=== PATIENT | female | born 1945 | race Caucasian/White ===

== ENCOUNTER → 2023-08-25 14:27 | Outpatient (REF) | payer MEDICARE, OTHER, SELFPAY ==
[2023-08-25 15:01] LABS: % Basophils 0.7 % (0-2); % Eosinophils 4.1 % (0-6); % Immature Granulocytes 0.3 % (0-0.5); % Lymphocytes 20.8 % (20.5-51.1); % Monocytes 9.1 % (1.7-9.3); Absolute Basophils 0.1 10^3/uL (0-0.2); Absolute Eosinophils 0.3 10^3/uL (0-0.7); Absolute Lymphocytes 1.5 10^3/uL (1.2-3.4); Absolute Monocytes 0.7 10^3/uL (0.1-0.6); Absolute Neutrophils 4.6 10^3/uL (1.4-6.5); Hematocrit 40.7 % (37.0-47.0); Hemoglobin 13.6 g/dL (12.0-16.0); Mean Corp Hgb Conc. 33.4 g/dL (33.0-37.0); Mean Corpuscular Hgb 34.5 pg (27.0-31.0); Mean Corpuscular Volume 103.3 fL (81.0-99.0); Mean Platelet Volume 10.5 fL (7.4-10.4); Nucleated Red Blood Cells % 0 %; Platelet Count 141 10^3/uL (130-400); Red Blood Cell Count 3.94 10^6/uL (4.20-5.40); Red Cell Dist. Width 12.1 % (11.5-14.5); White Blood Cell Count 7.1 10^3/uL (4.8-10.8)
[2023-08-25 15:13] LABS: Iron 92 ug/dl (37-170)
[2023-08-25 15:22] LABS: Percent Saturation 32 % (20-50); Total Iron Binding Capacity 280 ug/dl (265-497)
== END ==
LOC: REG 14:27
PROVIDERS: ATTENDING PHYSICIAN Nurse Practitioner Family; FAMILY PHYSICIAN Family Medicine
DX: D50.0 Iron deficiency anemia secondary to blood loss (chronic) (principal); E03.9 Hypothyroidism, unspecified; D64.9 Anemia, unspecified
CPT/HCPCS: 36415; 82728; 83540; 83550; 85025

== ENCOUNTER → 2023-11-14 09:56 | Outpatient (REF) | payer MEDICARE, OTHER, SELFPAY ==
[2023-11-14 12:13] LABS: C-Reactive Protein < 5.00 mg/L (0.0-10.00)
[2023-11-14 12:23] LABS: ALT (SGPT) 14 U/L (0-35); AST (SGOT) 24 U/L (14-36); Albumin 4.4 g/dl (3.5-5.0); Alkaline Phosphatase 72 U/L (38-126); Blood Urea Nitrogen 32 mg/dl (7-17); Calcium 9.5 mg/dl (8.4-10.2); Carbon Dioxide 29 mmol/L (22-30); Chloride 100 mmol/L (98-107); Glucose 84 mg/dl (70-99); Potassium 4.2 mmol/L (3.5-5.1); Sodium 133 mmol/L (135-145); Total Bilirubin 0.4 mg/dl (0.2-1.3); Total Protein 6.9 g/dl (6.3-8.2); eGFR > 60.00
== END ==
LOC: REG 09:56
PROVIDERS: ATTENDING PHYSICIAN Internal Medicine Rheumatology; FAMILY PHYSICIAN Family Medicine
DX: D64.9 Anemia, unspecified (principal); E55.9 Vitamin D deficiency, unspecified; I73.00 Raynaud's syndrome without gangrene; M06.4 Inflammatory polyarthropathy; M19.041 Primary osteoarthritis, right hand; M34.9 Systemic sclerosis, unspecified; M79.641 Pain in right hand; M79.642 Pain in left hand; M81.0 Age-related osteoporosis without current pathological fracture; R61 Generalized hyperhidrosis; Z11.1 Encounter for screening for respiratory tuberculosis; Z79.899 Other long term (current) drug therapy
CPT/HCPCS: 36415; 80053; 86140

== ENCOUNTER → 2023-11-19 11:26 | Outpatient (REF) | payer MEDICARE, OTHER, SELFPAY ==
[2023-11-19 12:27] LABS: % Basophils 0.4 % (0-2); % Eosinophils 1.6 % (0-6); % Immature Granulocytes 0.2 % (0-0.5); % Neutrophils 65.8 % (42.2-75.2); Absolute Eosinophils 0.1 10^3/uL (0-0.7); Absolute Lymphocytes 1.1 10^3/uL (1.2-3.4); Absolute Monocytes 0.5 10^3/uL (0.1-0.6); Absolute Neutrophils 3.3 10^3/uL (1.4-6.5); Hematocrit 40.9 % (37.0-47.0); Hemoglobin 13.5 g/dL (12.0-16.0); Mean Platelet Volume 10.7 fL (7.4-10.4); Nucleated Red Blood Cells % 0 %; Platelet Count 113 10^3/uL (130-400); Red Blood Cell Count 3.97 10^6/uL (4.20-5.40); Red Cell Dist. Width 12.5 % (11.5-14.5)
[2023-11-19 13:26] LABS: Iron 98 ug/dl (37-170)
[2023-11-19 13:35] LABS: Percent Saturation 32 % (20-50); Total Iron Binding Capacity 301 ug/dl (265-497)
== END ==
LOC: REG 11:26
PROVIDERS: ATTENDING PHYSICIAN Nurse Practitioner Family; FAMILY PHYSICIAN Family Medicine
DX: D50.0 Iron deficiency anemia secondary to blood loss (chronic) (principal); E03.9 Hypothyroidism, unspecified
CPT/HCPCS: 36415; 82728; 83540; 83550; 85025

== ENCOUNTER 2023-12-18 08:32 | Outpatient (RCR) | payer MEDICARE, OTHER, SELFPAY | END 2023-12-18 23:59 | disposition home or self-care (01) | LOC: RPT 08:32 | PROVIDERS: ATTENDING PHYSICIAN Orthopaedic Surgery; FAMILY PHYSICIAN Family Medicine | DX: M54.50 Low back pain, unspecified (principal); Z73.6 Limitation of activities due to disability | CPT/HCPCS: 97110; 97162 ==

== ENCOUNTER → 2023-12-24 14:43 | Outpatient (REF) | payer MEDICARE, OTHER, SELFPAY | LOC: RCS 14:43 | PROVIDERS: ATTENDING PHYSICIAN Internal Medicine Cardiovascular Disease; FAMILY PHYSICIAN Family Medicine | DX: I27.20 Pulmonary hypertension, unspecified (principal); I77.810 Thoracic aortic ectasia | CPT/HCPCS: 93306 ==

== ENCOUNTER → 2023-12-29 14:59 | Outpatient (REF) | payer MEDICARE, OTHER, SELFPAY | LOC: PAVMRI 14:59 | PROVIDERS: ATTENDING PHYSICIAN Orthopaedic Surgery; FAMILY PHYSICIAN Family Medicine | DX: M54.50 Low back pain, unspecified (principal) | CPT/HCPCS: 72148 ==

== ENCOUNTER 2024-01-15 14:08 | Outpatient (RCR) | payer MEDICARE, OTHER, SELFPAY | END 2024-01-15 23:59 | disposition home or self-care (01) | LOC: RPT 14:08 | PROVIDERS: ATTENDING PHYSICIAN Orthopaedic Surgery; FAMILY PHYSICIAN Family Medicine | DX: M54.50 Low back pain, unspecified (principal); Z73.6 Limitation of activities due to disability | CPT/HCPCS: 97110; 97530 ==

== ENCOUNTER 2024-02-16 11:16 | Outpatient (RCR) | payer MEDICARE, OTHER, SELFPAY | END 2024-02-16 23:59 | disposition home or self-care (01) | LOC: RPT 11:16 | PROVIDERS: ATTENDING PHYSICIAN Orthopaedic Surgery; FAMILY PHYSICIAN Family Medicine | DX: M54.50 Low back pain, unspecified (principal); Z73.6 Limitation of activities due to disability | CPT/HCPCS: 97110 ==

== ENCOUNTER → 2024-02-20 10:01 | Outpatient (REF) | payer MEDICARE, OTHER, SELFPAY ==
[2024-02-20 11:29] LABS: % Basophils 0.6 % (0-2); % Immature Granulocytes 0.2 % (0-0.5); % Lymphocytes 24.8 % (20.5-51.1); % Monocytes 9.2 % (1.7-9.3); % Neutrophils 63.2 % (42.2-75.2); Absolute Eosinophils 0.1 10^3/uL (0-0.7); Absolute Lymphocytes 1.3 10^3/uL (1.2-3.4); Absolute Monocytes 0.5 10^3/uL (0.1-0.6); Absolute Neutrophils 3.2 10^3/uL (1.4-6.5); Hematocrit 39.9 % (37.0-47.0); Hemoglobin 13.5 g/dL (12.0-16.0); Mean Corp Hgb Conc. 33.8 g/dL (33.0-37.0); Mean Corpuscular Hgb 34.1 pg (27.0-31.0); Mean Corpuscular Volume 100.8 fL (81.0-99.0); Nucleated Red Blood Cells % 0 %; Platelet Count 133 10^3/uL (130-400); Red Blood Cell Count 3.96 10^6/uL (4.20-5.40); Red Cell Dist. Width 12.4 % (11.5-14.5); White Blood Cell Count 5.1 10^3/uL (4.8-10.8)
[2024-02-20 11:41] LABS: ALT (SGPT) 15 U/L (0-35); AST (SGOT) 27 U/L (14-36); Albumin 4.5 g/dl (3.5-5.0); Alkaline Phosphatase 68 U/L (38-126); Blood Urea Nitrogen 23 mg/dl (7-17); C-Reactive Protein < 5.00 mg/L (0.0-10.00); Calcium 9.5 mg/dl (8.4-10.2); Carbon Dioxide 25 mmol/L (22-30); Chloride 100 mmol/L (98-107); Glucose 92 mg/dl (70-99); HDL Cholesterol 70 mg/dl; Iron 112 ug/dl (37-170); LDL Cholesterol, Calculated 59 mg/dl; Potassium 4.1 mmol/L (3.5-5.1); Sodium 134 mmol/L (135-145); Total Bilirubin 0.5 mg/dl (0.2-1.3); Total Cholesterol 149 mg/dl (50-199); Triglyceride 101 mg/dl (10-149); Very Low Density Lipoprotein 20 mg/dl (0-30); eGFR > 60.00
[2024-02-20 11:50] LABS: NT-proBNP 496 pg/ml; Percent Saturation 38 % (20-50); Total Iron Binding Capacity 290 ug/dl (265-497)
== END ==
LOC: REG 10:01
PROVIDERS: ATTENDING PHYSICIAN Internal Medicine; FAMILY PHYSICIAN Family Medicine; OTHER PHYSICIAN Internal Medicine Cardiovascular Disease; OTHER PHYSICIAN Internal Medicine Rheumatology; OTHER PHYSICIAN Nurse Practitioner Family
DX: M34.9 Systemic sclerosis, unspecified (principal); M19.90 Unspecified osteoarthritis, unspecified site; Z79.899 Other long term (current) drug therapy; D50.0 Iron deficiency anemia secondary to blood loss (chronic); I27.20 Pulmonary hypertension, unspecified; E78.5 Hyperlipidemia, unspecified; D50.9 Iron deficiency anemia, unspecified
CPT/HCPCS: 36415; 80053; 80061; 82728; 82784; 83521; 83540; 83550; 83880; 84155; 84165; 85025; 86140; 86334

== ENCOUNTER 2024-04-13 01:05 | Emergency (ER) | payer MEDICARE, OTHER, SELFPAY ==
[2024-04-13 01:06] VITALS: BP 138/78; BMI 21.4
--- NOTE | 2024-04-13 01:40 | ED.GENMED ---
History of Present Illness
General
Chief Complaint: Ear Problem
Source: patient
Exam Limitations: none
Time Seen by Provider: 04/13/24 01:30
Nursing documentation reviewed up to this point in time: agreed with
History of Present Illness
History of Present Illness:
78-year-old female presents emergency room complaining of left ear pain and left jaw pain. This began 2 days ago, and worsened this evening. She denies fevers. She has a history of TMJ. Tylenol and ibuprofen tonight.
Past History
Past History
ED Past Medical History: GERD, HTN, Valvular disease ( s/p TAVR), Hypothyroidism and Other (Lupus, scleroderma, Pulmonary Hypertension Raynauds, Constipation, Diverticulitis, GI bleeding, Ostomy with reversal, )
ED Past Surgical History: Bowel resection, Cardiac (Aortic valve replaced), Gynecological (partial hysterectom with bladder repair), Orthopedic (Left knee replacement) and Other
Social History
Tobacco: Former smoker
Alcohol: Occasional
Personal:
Living: with family
Family History
Family History: Negative Diabetes, Hypertension, Early CAD, Asthma or Cancer
Review of Systems
Review of Systems
Allergies reviewed?: Yes
All Other Systems: Not applicable
Constitutional: Reports no symptoms; Denies fever
EENT: Reports mouth pain and other (Jaw pain)
Respiratory: Reports no symptoms
Cardiac: Reports no symptoms
ABD/GI: Reports no symptoms
: Reports no symptoms
Musculoskeletal: Reports no symptoms
Skin: Reports no symptoms
Neurological: Reports no symptoms
Endocrine: Reports no symptoms
Hematologic/Lymphatic: Reports no symptoms
Psychiatric: Reports no symptoms
Phy Exam
Physical Exam
Physical Exam:
Physical Exam
General: no apparent distress, not acutely ill
Neck: supple. no meningeal signs. normal posterior pharynx
Heart: s1/s2 regular rate and rhythm, no murmur. equal radial
pulses.
HEENT: Pupils equal round reactive to light, EOMI, tenderness to palpation at left lower jaw/TMJ
Lungs: no acute respiratory distress. clear bilaterally
Abdomen: normal bowel sounds. not tender. no CVAT
Neuro: alert and oriented. no focal neurological deficits cranial nerves II through XII intact
Skin: no rash
Psychiatric: well kept. interactive and cooperative
Extremities: no edema. no calf tenderness. negative homans. good distal pulses
Course
Orders/Labs/Results
Orders:
Orders
04/13/24 01:39
CT Neck With Iv Contrast Urgent
Comment:
Reason For Exam: left side neck/jaw pain
IV Insert/Care/Rem.- Treatment PRN
04/13/24 01:49
Complete Blood Count/With Diff Urgent
Comprehensive Metabolic Panel Urgent
04/13/24 03:49
Ketorolac [Toradol] 15 mg IV NOW STA
Abnormal Lab Results
04/13/24
01:49
RBC 3.56 L 10^6/uL
(4.20-5.40)
Hgb 11.8 L g/dL
(12.0-16.0)
Hct 34.5 L %
(37.0-47.0)
MCH 33.1 H pg
(27.0-31.0)
Plt Count 118 L 10^3/uL
(130-400)
Absolute Lymphs (auto) 0.9 L 10^3/uL
(1.2-3.4)
Absolute Monos (auto) 0.7 H 10^3/uL
(0.1-0.6)
Lymphocytes % 14.6 L %
(20.5-51.1)
Monocytes % 10.6 H %
(1.7-9.3)
BUN 18 H mg/dl
(7-17)
Glucose 101 H mg/dl
(70-99)
Total Protein 6.1 L g/dl
(6.3-8.2)
04/13/24 01:49
04/13/24 01:49
Vital Signs
Initial and Last Documented VS:
Initial Vital Signs
Temp Pulse Resp BP Pulse Ox
97.7 F 89 20 138/78 95
04/13/24 01:06 04/13/24 01:06 04/13/24 01:06 04/13/24 01:06 04/13/24 01:06
Last Documented Vital Signs
Temp Pulse Resp BP Pulse Ox
97.7 F 89 20 142/63 95
04/13/24 01:06 04/13/24 01:06 04/13/24 01:06 04/13/24 03:11 04/13/24 03:11
MDM/Problems Addressed
Differential Diagnosis Includes:
TMJ, deep space infection
MDM/Problems Addressed:
78-year-old female with left jaw pain, no chest pain. Do not suspect ACS, no signs of deep space infection. Likely temporomandibular joint disorder. Follow-up with dentist.
Chronic conditions affecting care: HTN
Acute Exacerbation and/or Progression of Chronic Illness: Other (TMJ disorder)
*Radiology
Radiology exam reviewed: radiology read reviewed (CT neck shows no signs of deep space infection, small amount of fluid at left TMJ.)
*Pulse Oximetry
Patient hypoxic: no
*Critical Care Note
Total Time (30-74mins, 75-104mins- exclusive of procedures): Not Applicable
Patient Management
Social determinants of health affecting care: Living situation
Escalation/DeEscalation of care consider admission/obs:
Admit not indicated
ED Attending Note
-
Portions of this chart may have been created with voice recognition software.� Occasional wrong word or��sound alike� substitutions may have occurred due to the inherent limitations of voice recognition software.
Discharge Plan
Departure
Patient Disposition: Home (Routine Discharge)
Date of Disposition: 04/13/24
Time of Disposition: 03:50
Patient with high blood pressure during this ER visit?: Yes
Condition: Good
Discharge Problem:
TMJ arthralgia
Instructions: Temporomandibular joint (TMJ) disorders, BLOOD PRESSURE
Prescriptions:
No Action
atorvastatin 10 MG tablet
10 mg PO HS
aspirin 81 MG tablet,delayed release (DR/EC)
81 mg PO HS
levothyroxine 100 MCG tablet
100 mcg PO HS
methotrexate sodium 2.5 MG tablet
15 mg PO FR
Patient Comments:
X6 on Friday
fluoxetine 20 MG capsule
20 mg PO DAILY
folic acid 1 MG tablet
1 mg PO DAILY
sildenafil (pulm.hypertension) 20 MG tablet
20 mg PO TID
acetaminophen 500 MG tablet
500 mg PO BID
cyanocobalamin (vitamin B-12) 500 mcg Tablet
500 mcg PO DAILY Qty: 0
cholecalciferol (vitamin D3) [Vitamin D3] 1,000 UNIT capsule
1,000 units PO DAILY
calcium citrate 250 mg calcium Tablet
250 mg PO DAILY Qty: 0
Prolia 60 mg/mL Syringe
60 mg SC [id number] Qty: 0
Patient Comments:
Prolia Shot every 6 months in office
clindamycin HCl 150 mg Capsule
450 mg PO DAILYPRN PRN (Reason: prior to dental procedure) Qty: 0
ethacrynic acid 25 mg Tablet
25 mg PO DAILY Qty: 0 0RF
Rx Instructions:
Take two tabs 50mg for the next 5 days then back to 25mg
cranberry 500 mg Capsule
500 mg PO HS
melatonin 1 mg Tablet
1 mg PO HS
Opsumit 10 mg Tablet
10 mg PO DAILY
Blanche/Turmeric
500 mg PO DAILY
[facility] Mindlink Probiotic 12 Billion
1 cap PO DAILY
polyethylene glycol 3350 17 gram Powder In Packet
17 g PO DAILY Qty: 0 0RF
pantoprazole [Protonix] 40 mg tablet,delayed release (DR/EC)
40 mg PO BID Qty: 30 0RF
Referrals:
Nicolas Loera MD [Family Provider] -
Activity Restrictions/Additional Instructions:
Follow up with your dentist. Return for any concerns.
Interventions
Interventions:
*Risk Screen - Suicide Last Done: 04/13/24 01:06
*General Assessment Last Done: 04/13/24 01:06
*Neglect/Abuse Screening Last Done: 04/13/24 01:06
ED- Fall Risk Assessment Last Done: 04/13/24 01:35
*ED COVID-19 Vaccine History Last Done: 04/13/24 01:16
Discharge Date and Time
Print Language: NIGERIEN
[2024-04-13 02:07] LABS: % Basophils 0.3 % (0-2); % Eosinophils 2.8 % (0-6); % Immature Granulocytes 0.2 % (0-0.5); % Lymphocytes 14.6 % (20.5-51.1); % Monocytes 10.6 % (1.7-9.3); % Neutrophils 71.5 % (42.2-75.2); Absolute Eosinophils 0.2 10^3/uL (0-0.7); Absolute Lymphocytes 0.9 10^3/uL (1.2-3.4); Absolute Monocytes 0.7 10^3/uL (0.1-0.6); Absolute Neutrophils 4.6 10^3/uL (1.4-6.5); Hematocrit 34.5 % (37.0-47.0); Hemoglobin 11.8 g/dL (12.0-16.0); Mean Corp Hgb Conc. 34.2 g/dL (33.0-37.0); Mean Corpuscular Hgb 33.1 pg (27.0-31.0); Mean Corpuscular Volume 96.9 fL (81.0-99.0); Mean Platelet Volume 10.3 fL (7.4-10.4); Nucleated Red Blood Cells % 0 %; Platelet Count 118 10^3/uL (130-400); Red Blood Cell Count 3.56 10^6/uL (4.20-5.40); Red Cell Dist. Width 12.8 % (11.5-14.5); White Blood Cell Count 6.4 10^3/uL (4.8-10.8)
[2024-04-13 02:23] LABS: ALT (SGPT) 13 U/L (0-35); AST (SGOT) 23 U/L (14-36); Albumin 3.8 g/dl (3.5-5.0); Alkaline Phosphatase 64 U/L (38-126); Blood Urea Nitrogen 18 mg/dl (7-17); Calcium 9.3 mg/dl (8.4-10.2); Carbon Dioxide 23 mmol/L (22-30); Chloride 103 mmol/L (98-107); Glucose 101 mg/dl (70-99); Potassium 3.9 mmol/L (3.5-5.1); Sodium 138 mmol/L (135-145); Total Bilirubin 0.5 mg/dl (0.2-1.3); Total Protein 6.1 g/dl (6.3-8.2); eGFR > 60.00
[2024-04-13 03:11] VITALS: BP 142/63
[2024-04-13 04:08] VITALS: BP 132/60
[2024-04-13] MEDS: TORADOL 15 MG IV (04:09)
== END 2024-04-13 04:19 | disposition home or self-care (01) ==
LOC: EMR 01:05
PROVIDERS: EMERGENCY PHYSICIAN Emergency Medicine; FAMILY PHYSICIAN Family Medicine
DX: M26.629 Arthralgia of temporomandibular joint, unspecified side (principal); Z87.891 Personal history of nicotine dependence; I10 Essential (primary) hypertension
CPT/HCPCS: 99284; 96374; 70491; 80053; 85025; Q9967

== ENCOUNTER → 2024-05-14 13:22 | Outpatient (REF) | payer MEDICARE, OTHER, SELFPAY | LOC: WDC 13:22 | PROVIDERS: ATTENDING PHYSICIAN Family Medicine | DX: Z12.31 Encounter for screening mammogram for malignant neoplasm of breast (principal) | CPT/HCPCS: 77063; 77067 ==

== ENCOUNTER → 2024-06-01 09:38 | Outpatient (REF) | payer MEDICARE, OTHER, SELFPAY ==
[2024-06-01 11:00] LABS: % Basophils 0.7 % (0-2); % Eosinophils 5.7 % (0-6); % Immature Granulocytes 0.4 % (0-0.5); % Lymphocytes 27.8 % (20.5-51.1); % Monocytes 9.6 % (1.7-9.3); % Neutrophils 55.8 % (42.2-75.2); Absolute Eosinophils 0.3 10^3/uL (0-0.7); Absolute Lymphocytes 1.6 10^3/uL (1.2-3.4); Absolute Monocytes 0.5 10^3/uL (0.1-0.6); Absolute Neutrophils 3.1 10^3/uL (1.4-6.5); Hematocrit 41.3 % (37.0-47.0); Hemoglobin 13.4 g/dL (12.0-16.0); Mean Corp Hgb Conc. 32.4 g/dL (33.0-37.0); Mean Corpuscular Hgb 32.6 pg (27.0-31.0); Mean Corpuscular Volume 100.5 fL (81.0-99.0); Mean Platelet Volume 10.8 fL (7.4-10.4); Nucleated Red Blood Cells % 0 %; Platelet Count 144 10^3/uL (130-400); Red Blood Cell Count 4.11 10^6/uL (4.20-5.40); Red Cell Dist. Width 13.5 % (11.5-14.5); White Blood Cell Count 5.6 10^3/uL (4.8-10.8)
[2024-06-01 11:25] LABS: C-Reactive Protein < 5.00 mg/L (0.0-10.00)
[2024-06-01 11:57] LABS: Hepatitis B Surface Antigen Negative (Negative)
[2024-06-01 12:15] LABS: Hepatitis C Antibody Negative (Negative)
[2024-06-01 12:35] LABS: ALT (SGPT) 15 U/L (0-35); AST (SGOT) 24 U/L (14-36); Albumin 4.7 g/dl (3.5-5.0); Alkaline Phosphatase 68 U/L (38-126); Blood Urea Nitrogen 24 mg/dl (7-17); Calcium 10.2 mg/dl (8.4-10.2); Carbon Dioxide 26 mmol/L (22-30); Chloride 101 mmol/L (98-107); Glucose 92 mg/dl (70-99); Iron 81 ug/dl (37-170); Potassium 4.7 mmol/L (3.5-5.1); Sodium 140 mmol/L (135-145); Total Bilirubin 0.4 mg/dl (0.2-1.3); Total Protein 7.3 g/dl (6.3-8.2); eGFR > 60.00
[2024-06-01 14:07] LABS: Percent Saturation 26 % (20-50); Total Iron Binding Capacity 303 ug/dl (265-497)
[2024-06-03 01:38] LABS: CCP Antibody IgG/IgA 19 Units (0-19)
[2024-06-03 10:32] LABS: Rheumatoid Agglutinin Less Than 10 IU (<10 IU)
== END ==
LOC: REG 09:38
PROVIDERS: ATTENDING PHYSICIAN Internal Medicine Rheumatology; FAMILY PHYSICIAN Family Medicine; OTHER PHYSICIAN Nurse Practitioner Family
DX: D64.9 Anemia, unspecified (principal); E55.9 Vitamin D deficiency, unspecified; I73.00 Raynaud's syndrome without gangrene; M06.4 Inflammatory polyarthropathy; M19.041 Primary osteoarthritis, right hand; M34.9 Systemic sclerosis, unspecified; M48.02 Spinal stenosis, cervical region; M48.061 Spinal stenosis, lumbar region without neurogenic claudication; M79.641 Pain in right hand; M79.642 Pain in left hand; M81.0 Age-related osteoporosis without current pathological fracture; R61 Generalized hyperhidrosis; Z11.1 Encounter for screening for respiratory tuberculosis; Z11.59 Encounter for screening for other viral diseases; Z73.89 Other problems related to life management difficulty; Z79.899 Other long term (current) drug therapy
CPT/HCPCS: 36415; 80053; 82728; 83540; 83550; 85025; 86140; 86200; 86430; 86803; 87340

== ENCOUNTER → 2024-06-03 10:17 | Outpatient (REF) | payer MEDICARE, OTHER, SELFPAY | LOC: HWRAD 10:17 | PROVIDERS: ATTENDING PHYSICIAN Orthopaedic Surgery; FAMILY PHYSICIAN Family Medicine; REFERRING PHYSICIAN Internal Medicine Rheumatology | DX: M25.062 Hemarthrosis, left knee (principal); Z96.652 Presence of left artificial knee joint | CPT/HCPCS: 73706; Q9967 ==

== ENCOUNTER → 2024-06-21 13:54 | Outpatient (REF) | payer MEDICARE, OTHER, SELFPAY | LOC: RADI 13:54 | PROVIDERS: ATTENDING PHYSICIAN Orthopaedic Surgery; FAMILY PHYSICIAN Family Medicine | DX: M25.062 Hemarthrosis, left knee (principal); M25.462 Effusion, left knee; M25.562 Pain in left knee ==

== ENCOUNTER 2024-07-06 06:59 | Outpatient (REF) | payer MEDICARE, OTHER, SELFPAY ==
[2024-07-06] VITALS (7 sets, daily range): BP systolic 68–152; BP diastolic 48–91
[2024-07-06 07:42] LABS: Hematocrit 36.1 % (37.0-47.0); Hemoglobin 12.1 g/dL (12.0-16.0); Mean Corp Hgb Conc. 33.5 g/dL (33.0-37.0); Mean Corpuscular Hgb 33.2 pg (27.0-31.0); Mean Corpuscular Volume 98.9 fL (81.0-99.0); Mean Platelet Volume 10.4 fL (7.4-10.4); Platelet Count 129 10^3/uL (130-400); Red Blood Cell Count 3.65 10^6/uL (4.20-5.40); Red Cell Dist. Width 13.4 % (11.5-14.5); White Blood Cell Count 5.9 10^3/uL (4.8-10.8)
[2024-07-06 07:52] LABS: PT 13.5 Sec (11.4-14.6)
[2024-07-06] MEDS: VANCOCIN 200 IV (08:41)
== END 2024-07-06 15:30 | disposition home or self-care (01) ==
LOC: RADI 06:59
PROVIDERS: ATTENDING PHYSICIAN Radiology Diagnostic Radiology; FAMILY PHYSICIAN Family Medicine; OTHER PHYSICIAN Physician Assistant; REFERRING PHYSICIAN Orthopaedic Surgery
DX: M25.062 Hemarthrosis, left knee (principal); Z96.652 Presence of left artificial knee joint
CPT/HCPCS: 20611; 36247; 36415; 37243; 76937; 85027; 85610; 99152; 99153; C1769; C1887

== ENCOUNTER → 2024-07-31 09:16 | Outpatient (REF) | payer MEDICARE, OTHER, SELFPAY ==
[2024-07-31 10:34] LABS: % Basophils 0.8 % (0-2); % Eosinophils 6.5 % (0-6); % Immature Granulocytes 0.2 % (0-0.5); % Lymphocytes 27.3 % (20.5-51.1); % Monocytes 10.7 % (1.7-9.3); % Neutrophils 54.5 % (42.2-75.2); Absolute Basophils 0.1 10^3/uL (0-0.2); Absolute Eosinophils 0.4 10^3/uL (0-0.7); Absolute Lymphocytes 1.6 10^3/uL (1.2-3.4); Absolute Monocytes 0.6 10^3/uL (0.1-0.6); Absolute Neutrophils 3.2 10^3/uL (1.4-6.5); Hematocrit 40.7 % (37.0-47.0); Hemoglobin 13.4 g/dL (12.0-16.0); Mean Corp Hgb Conc. 32.9 g/dL (33.0-37.0); Mean Corpuscular Hgb 33.1 pg (27.0-31.0); Mean Corpuscular Volume 100.5 fL (81.0-99.0); Mean Platelet Volume 10.8 fL (7.4-10.4); Nucleated Red Blood Cells % 0 %; Platelet Count 132 10^3/uL (130-400); Red Blood Cell Count 4.05 10^6/uL (4.20-5.40); Red Cell Dist. Width 13.2 % (11.5-14.5)
[2024-07-31 11:03] LABS: ALT (SGPT) 11 U/L (0-35); AST (SGOT) 21 U/L (14-36); Albumin 4.4 g/dl (3.5-5.0); Alkaline Phosphatase 80 U/L (38-126); Total Bilirubin 0.3 mg/dl (0.2-1.3)
== END ==
LOC: REG 09:16
PROVIDERS: ATTENDING PHYSICIAN Internal Medicine Rheumatology; FAMILY PHYSICIAN Family Medicine
DX: M06.4 Inflammatory polyarthropathy (principal); Z79.899 Other long term (current) drug therapy
CPT/HCPCS: 36415; 80076; 85025

== ENCOUNTER → 2024-10-04 14:38 | Outpatient (REF) | payer MEDICARE, OTHER, SELFPAY ==
[2024-10-04 15:49] LABS: % Eosinophils 4.6 % (0-6); % Immature Granulocytes 0.6 % (0-0.5); % Lymphocytes 17.1 % (20.5-51.1); % Monocytes 8.5 % (1.7-9.3); % Neutrophils 68.2 % (42.2-75.2); Absolute Basophils 0.1 10^3/uL (0-0.2); Absolute Eosinophils 0.2 10^3/uL (0-0.7); Absolute Lymphocytes 0.9 10^3/uL (1.2-3.4); Absolute Monocytes 0.4 10^3/uL (0.1-0.6); Absolute Neutrophils 3.6 10^3/uL (1.4-6.5); Hematocrit 36.2 % (37.0-47.0); Hemoglobin 11.8 g/dL (12.0-16.0); Mean Corp Hgb Conc. 32.6 g/dL (33.0-37.0); Mean Corpuscular Hgb 33.1 pg (27.0-31.0); Mean Corpuscular Volume 101.7 fL (81.0-99.0); Mean Platelet Volume 10.5 fL (7.4-10.4); Nucleated Red Blood Cells % 0 %; Platelet Count 141 10^3/uL (130-400); Red Blood Cell Count 3.56 10^6/uL (4.20-5.40); White Blood Cell Count 5.2 10^3/uL (4.8-10.8)
[2024-10-04 16:15] LABS: Iron 77 ug/dl (37-170)
[2024-10-04 16:24] LABS: Percent Saturation 24 % (20-50); Total Iron Binding Capacity 309 ug/dl (265-497)
== END ==
LOC: REG 14:38
PROVIDERS: ATTENDING PHYSICIAN Internal Medicine Hematology & Oncology; FAMILY PHYSICIAN Family Medicine
DX: D50.0 Iron deficiency anemia secondary to blood loss (chronic) (principal)
CPT/HCPCS: 36415; 82728; 83540; 83550; 85025

== ENCOUNTER → 2024-11-03 09:17 | Outpatient (REF) | payer MEDICARE, OTHER, SELFPAY ==
[2024-11-03 10:32] LABS: % Basophils 0.7 % (0-2); % Eosinophils 3.7 % (0-6); % Immature Granulocytes 0.2 % (0-0.5); % Lymphocytes 21.7 % (20.5-51.1); % Monocytes 8.7 % (1.7-9.3); Absolute Eosinophils 0.2 10^3/uL (0-0.7); Absolute Lymphocytes 1.3 10^3/uL (1.2-3.4); Absolute Monocytes 0.5 10^3/uL (0.1-0.6); Absolute Neutrophils 3.9 10^3/uL (1.4-6.5); Hematocrit 36.7 % (37.0-47.0); Mean Corp Hgb Conc. 32.7 g/dL (33.0-37.0); Mean Corpuscular Hgb 32.9 pg (27.0-31.0); Mean Corpuscular Volume 100.5 fL (81.0-99.0); Mean Platelet Volume 10.2 fL (7.4-10.4); Nucleated Red Blood Cells % 0 %; Platelet Count 135 10^3/uL (130-400); Red Blood Cell Count 3.65 10^6/uL (4.20-5.40); Red Cell Dist. Width 14.3 % (11.5-14.5)
== END ==
LOC: REG 09:17
PROVIDERS: ATTENDING PHYSICIAN Internal Medicine Hematology & Oncology; FAMILY PHYSICIAN Family Medicine
DX: D50.0 Iron deficiency anemia secondary to blood loss (chronic) (principal)
CPT/HCPCS: 36415; 85025

== ENCOUNTER → 2024-11-11 07:00 | Outpatient (REF) | payer MEDICARE, OTHER, SELFPAY ==
[2024-11-11] VITALS (10 sets, daily range): BP systolic 60–142; BP diastolic 49–94
[2024-11-11 07:50] LABS: INR 0.96; PT 13.3 Sec (11.4-14.6)
--- NOTE | 2024-11-11 15:15 | PTCARENOTE ---
1200 S/P left genicular artery embolization, via left femoral artery. Pressure held after procedure, where patient was moving while pressure was held. Pt. stated she was twitching uncontrollably. Pressure had to be manually held by RTs for one hour.
Hematoma 7.5cmX 5cm noted. Resolved within 1hour. Pt. remaining in IRAD to recover laying flat until 1630pm.
1500 voided yellow urine in bedan. Logrolled to place on and take off bedpan. Tolerating finger foods and gingerale.
== END ==
LOC: RADI 07:00
PROVIDERS: ATTENDING PHYSICIAN Radiology Diagnostic Radiology; FAMILY PHYSICIAN Family Medicine; OTHER PHYSICIAN Physician Assistant; REFERRING PHYSICIAN Orthopaedic Surgery
DX: M25.062 Hemarthrosis, left knee (principal); D68.8 Other specified coagulation defects
CPT/HCPCS: 36140; 36247; 36415; 37242; 75710; 76937; 85610; 99152; 99153; C1769

== ENCOUNTER → 2024-11-29 11:00 | Outpatient (REF) | payer MEDICARE, OTHER, SELFPAY ==
[2024-11-29 12:06] LABS: ALT (SGPT) 12 U/L (0-35); AST (SGOT) 22 U/L (14-36); Albumin 4.3 g/dl (3.5-5.0); Alkaline Phosphatase 77 U/L (38-126); Blood Urea Nitrogen 25 mg/dl (7-17); Calcium 10.1 mg/dl (8.4-10.2); Carbon Dioxide 29 mmol/L (22-30); Chloride 101 mmol/L (98-107); Glucose 93 mg/dl (70-99); HDL Cholesterol 71 mg/dl; Iron 97 ug/dl (37-170); LDL Cholesterol, Calculated 52 mg/dl; Potassium 4.2 mmol/L (3.5-5.1); Sodium 137 mmol/L (135-145); Total Bilirubin 0.5 mg/dl (0.2-1.3); Total Cholesterol 144 mg/dl (50-199); Total Protein 7.1 g/dl (6.3-8.2); Triglyceride 108 mg/dl (10-149); Very Low Density Lipoprotein 21 mg/dl (0-30); eGFR > 60.00
[2024-11-29 12:08] LABS: C-Reactive Protein < 5.00 mg/L (0.0-10.00)
[2024-11-29 12:11] LABS: NT-proBNP 584 pg/ml; Troponin I < 0.012 ng/ml
[2024-11-29 12:13] LABS: % Basophils 0.6 % (0-2); % Eosinophils 3.1 % (0-6); % Immature Granulocytes 0.4 % (0-0.5); % Lymphocytes 17.2 % (20.5-51.1); % Neutrophils 70.7 % (42.2-75.2); Absolute Eosinophils 0.2 10^3/uL (0-0.7); Absolute Lymphocytes 0.8 10^3/uL (1.2-3.4); Absolute Monocytes 0.4 10^3/uL (0.1-0.6); Absolute Neutrophils 3.5 10^3/uL (1.4-6.5); Hematocrit 41.6 % (37.0-47.0); Hemoglobin 13.5 g/dL (12.0-16.0); Mean Corp Hgb Conc. 32.5 g/dL (33.0-37.0); Mean Corpuscular Hgb 33.1 pg (27.0-31.0); Mean Platelet Volume 10.6 fL (7.4-10.4); Nucleated Red Blood Cells % 0 %; Platelet Count 141 10^3/uL (130-400); Red Blood Cell Count 4.08 10^6/uL (4.20-5.40); Red Cell Dist. Width 14.3 % (11.5-14.5); White Blood Cell Count 4.9 10^3/uL (4.8-10.8)
[2024-11-29 12:16] LABS: Percent Saturation 28 % (20-50); Total Iron Binding Capacity 337 ug/dl (265-497)
[2024-11-29 12:46] LABS: Ferritin 70.6 ng/ml (11.1-264.0)
[2024-11-29 12:50] LABS: Vitamin D, 25-OH*** 41.4 ng/mL (30-80)
== END ==
LOC: REG 11:00
PROVIDERS: ATTENDING PHYSICIAN Internal Medicine Rheumatology; FAMILY PHYSICIAN Family Medicine; OTHER PHYSICIAN Internal Medicine Hematology & Oncology; REFERRING PHYSICIAN Internal Medicine Cardiovascular Disease
DX: D64.9 Anemia, unspecified (principal); E55.9 Vitamin D deficiency, unspecified; I73.00 Raynaud's syndrome without gangrene; M06.4 Inflammatory polyarthropathy; M19.041 Primary osteoarthritis, right hand; M34.9 Systemic sclerosis, unspecified; M48.02 Spinal stenosis, cervical region; M48.061 Spinal stenosis, lumbar region without neurogenic claudication; M79.641 Pain in right hand; M79.642 Pain in left hand; M81.0 Age-related osteoporosis without current pathological fracture; R61 Generalized hyperhidrosis; Z11.1 Encounter for screening for respiratory tuberculosis; Z11.59 Encounter for screening for other viral diseases; Z79.899 Other long term (current) drug therapy; I27.20 Pulmonary hypertension, unspecified; E78.5 Hyperlipidemia, unspecified; D50.0 Iron deficiency anemia secondary to blood loss (chronic)
CPT/HCPCS: 36415; 80053; 80061; 82306; 82728; 83540; 83550; 83880; 84484; 85025; 86140

== ENCOUNTER → 2024-12-09 09:48 | Outpatient (REF) | payer MEDICARE, OTHER, SELFPAY ==
[2024-12-11 15:23] LABS: Quantiferon Mitogen minus NIL 9.95 IU/mL; Quantiferon NIL 0.05 IU/mL; Quantiferon Plus TB1 minus NIL 0.01 IU/mL (<=0.34); Quantiferon Plus TB2 minus NIL 0.01 IU/mL (<=0.34); Quantiferon TB Gold Plus Negative (Negative)
== END ==
LOC: REG 09:48
PROVIDERS: ATTENDING PHYSICIAN Internal Medicine Rheumatology; FAMILY PHYSICIAN Family Medicine
DX: R61 Generalized hyperhidrosis (principal); Z11.1 Encounter for screening for respiratory tuberculosis
CPT/HCPCS: 36415; 86480

== ENCOUNTER → 2024-12-28 13:45 | Outpatient (REF) | payer MEDICARE, OTHER, SELFPAY | LOC: RAD 13:45 | PROVIDERS: ATTENDING PHYSICIAN Internal Medicine Rheumatology; FAMILY PHYSICIAN Family Medicine | DX: M81.0 Age-related osteoporosis without current pathological fracture (principal); Z13.820 Encounter for screening for osteoporosis | CPT/HCPCS: 77080; 77081 ==

== ENCOUNTER → 2025-02-18 12:11 | Outpatient (REF) | payer MEDICARE, OTHER, SELFPAY ==
[2025-02-18 13:05] LABS: Hematocrit 38.2 % (37.0-47.0); Hemoglobin 12.5 g/dL (12.0-16.0); Mean Corp Hgb Conc. 32.7 g/dL (33.0-37.0); Mean Corpuscular Volume 101.3 fL (81.0-99.0); Nucleated Red Blood Cells % 0 %; Platelet Count 132 10^3/uL (130-400); Red Cell Dist. Width 13.4 % (11.5-14.5)
[2025-02-18 13:41] LABS: Iron 86 ug/dl (37-170)
[2025-02-18 13:51] LABS: Total Iron Binding Capacity 370 ug/dl (265-497)
[2025-02-18 14:52] LABS: Ferritin 58.7 ng/ml (11.1-264.0)
== END ==
LOC: REG 12:11
PROVIDERS: ATTENDING PHYSICIAN Internal Medicine Hematology & Oncology; FAMILY PHYSICIAN Family Medicine
DX: D50.0 Iron deficiency anemia secondary to blood loss (chronic) (principal)
CPT/HCPCS: 36415; 82728; 83540; 83550; 85025

== ENCOUNTER → 2025-03-14 11:19 | Outpatient (REF) | payer MEDICARE, OTHER, SELFPAY | LOC: RCS 11:19 | PROVIDERS: ATTENDING PHYSICIAN Internal Medicine Cardiovascular Disease; FAMILY PHYSICIAN Family Medicine | DX: Z95.2 Presence of prosthetic heart valve (principal); I27.20 Pulmonary hypertension, unspecified | CPT/HCPCS: 93306 ==

== ENCOUNTER → 2025-03-22 08:08 | Outpatient (REF) | payer MEDICARE, OTHER, SELFPAY | LOC: RAD 08:08 | PROVIDERS: ATTENDING PHYSICIAN Physician Assistant Medical; FAMILY PHYSICIAN Family Medicine | DX: M25.062 Hemarthrosis, left knee (principal); M25.562 Pain in left knee | CPT/HCPCS: 78315; A9503 ==

== ENCOUNTER → 2025-04-27 07:03 | Outpatient (REF) | payer MEDICARE, OTHER, SELFPAY ==
[2025-04-27] VITALS (13 sets, daily range): BP systolic 57–144; BP diastolic 56–80
[2025-04-27 07:41] LABS: INR 0.94; PT 12.9 Sec (11.4-14.6)
[2025-04-27 07:44] LABS: Hematocrit 42.1 % (37.0-47.0); Hemoglobin 13.5 g/dL (12.0-16.0); Mean Corp Hgb Conc. 32.1 g/dL (33.0-37.0); Mean Corpuscular Volume 99.1 fL (81.0-99.0); Platelet Count 140 10^3/uL (130-400); Red Cell Dist. Width 13.5 % (11.5-14.5)
[2025-04-27 07:52] LABS: Blood Urea Nitrogen 26 mg/dl (7-17)
[2025-04-27] MEDS: VANCOCIN 200 IV (08:49)
== END ==
LOC: RADI 07:03
PROVIDERS: ATTENDING PHYSICIAN Physician Assistant Medical; FAMILY PHYSICIAN Family Medicine
DX: M25.062 Hemarthrosis, left knee (principal); M25.562 Pain in left knee; Z96.652 Presence of left artificial knee joint; D68.8 Other specified coagulation defects
CPT/HCPCS: 20610; 36247; 36415; 37242; 75710; 76937; 76942; 82565; 84520; 85027; 85610; C1769; C1887

== ENCOUNTER → 2025-06-03 10:34 | Outpatient (REF) | payer MEDICARE, OTHER, SELFPAY ==
[2025-06-03 14:14] LABS: Hematocrit 39.2 % (37.0-47.0); Hemoglobin 12.7 g/dL (12.0-16.0); Mean Corp Hgb Conc. 32.4 g/dL (33.0-37.0); Mean Corpuscular Volume 101.3 fL (81.0-99.0); Nucleated Red Blood Cells % 0 %; Platelet Count 128 10^3/uL (130-400); Red Cell Dist. Width 13.4 % (11.5-14.5)
[2025-06-03 14:15] LABS: ALT (SGPT) 13 U/L (0-35); AST (SGOT) 21 U/L (14-36); Albumin 4.4 g/dl (3.5-5.0); Alkaline Phosphatase 66 U/L (38-126); Blood Urea Nitrogen 18 mg/dl (7-17); Calcium 9.7 mg/dl (8.4-10.2); Carbon Dioxide 28 mmol/L (22-30); Chloride 98 mmol/L (98-107); Glucose 86 mg/dl (70-99); Iron 70 ug/dl (37-170); Potassium 4.0 mmol/L (3.5-5.1); Sodium 135 mmol/L (135-145); Total Protein 7.2 g/dl (6.3-8.2); eGFR > 60.00
[2025-06-03 14:17] LABS: C-Reactive Protein 6.40 mg/L (0.0-10.00)
[2025-06-03 14:24] LABS: Total Iron Binding Capacity 346 ug/dl (265-497)
[2025-06-03 14:34] LABS: Vitamin D, 25-OH*** 42.2 ng/mL (30-80)
[2025-06-03 14:52] LABS: Ferritin 55.7 ng/ml (11.1-264.0)
== END ==
LOC: REG 10:34
PROVIDERS: ATTENDING PHYSICIAN Obstetrics & Gynecology; FAMILY PHYSICIAN Family Medicine; OTHER PHYSICIAN Physician Assistant; REFERRING PHYSICIAN Internal Medicine Hematology & Oncology
DX: Z12.31 Encounter for screening mammogram for malignant neoplasm of breast (principal); D50.0 Iron deficiency anemia secondary to blood loss (chronic); M06.4 Inflammatory polyarthropathy; M34.9 Systemic sclerosis, unspecified; Z79.899 Other long term (current) drug therapy
CPT/HCPCS: 36415; 77063; 77067; 80053; 82306; 82728; 83540; 83550; 85025; 86140